=== PATIENT | male | born 1970 | race Caucasian/White ===

== ENCOUNTER 2017-01-09 09:53 | Day surgery (SDC) | payer OTHER ==
[~2017-01-09 09:53] MED LIST: RINGER'S SOLUTION,LACTATED 1,000 ML IV PRN
[2017-01-09] MEDS ORDERED: RINGER'S SOLUTION,LACTATED 1,000 ML IV ONE (10:19)
--- NOTE | 2017-01-09 13:12 | OR ---
Operative Report - Dictated Report Narrative: Date: 01/09/2017 Preoperative diagnosis: Anterior hemorrhoidal skin tag Postoperative diagnosis: Same, small anterior anal fissure Procedure: Excision hemorrhoidal skin tag Staff surgeon: Zhao Whaley MD Anesthesia: Local/Ahmet EBL: None Specimen: Hemorrhoidal skin tag Description of procedure: The patient was placed in the prone jackknife position and the buttocks were taped apart. Anal region was prepped and draped in a sterile fashion. A field block was performed with Marcaine anteriorly. The hemorrhoidal tag was grasped and elevated taking care not to entrain the underlying sphincteric mechanism. The tag was then transected at its base with a ligasure device. A Marcaine- soaked Gelfoam was then inserted into the anal canal and then anal retentive dressing was applied. The patient tolerated the procedure well without any apparent complications was discharged from the operating room stable condition.
[2017-01-09 14:14] VITALS: BP 118/74
== END 2017-01-09 09:54 | disposition home or self-care (01) ==
LOC: AMB 09:53
PROVIDERS: ATTEND Specialist
PROC: 0DBQXZZ Excision of Anus, External Approach (ICD-10-PCS; principal; 2017-01-09 12:00)
DX: K64.4 Residual hemorrhoidal skin tags (principal); K60.2 Anal fissure, unspecified; E03.9 Hypothyroidism, unspecified; Z68.23 Body mass index [BMI] 23.0-23.9, adult